=== PATIENT | male | born 1970 | race Caucasian/White ===

== ENCOUNTER 2016-06-12 09:16 | Emergency (ER) | payer MEDICARE ==
[~2016-06-12] VITALS: Ht 190.5 cm; Wt 156.5 kg
[2016-06-12 09:48] VITALS: BP 169/82
[2016-06-12] MEDS ORDERED: OXYC-323 PO (10:24)
--- NOTE | 2016-06-12 10:24 | PHYS DOC ---
Past Medical History Past Medical History: Other Additional Past Medical Histor: crohns, scleraderma,reynauds,hydrenitis Past Surgical History: Other Additional Past Surgical Histo: multiple groin surgeries for hydrenitis, cholectomy,ileostomy Alcohol Use: None Drug Use: None Adult General Chief Complaint Chief Complaint: POST-OP PROBLEM HPI HPI Patient is a 45 year old male who presents with postoperative groin pain. Patient reports he underwent surgery for hidradenitis suppurativa of right groin on 05/06, has had ongoing pain since time of surgery. He reports small amount of blood tinged drainage from the wound. Denies fevers/chills, purulent drainage, hot/red/swollen skin around the wound. His is hospitalized here so he has been ambulating more than usual in order to visit her, & states the friction of his pant leg against the wound has caused significant increase in pain. He reports history of recurrent abscesses requiring numerous surgeries, as well as Crohn's disease. His surgeon was Dr. Marie at [facility]. He has a follow up appointment on 06/16. He is also a patient at the [facility]. States he takes percocet but already ran out of his prescription, can't refill until sometime around 06/15. Review of Systems Review of Systems Constitutional: Denies fever or chills HENT: Denies nasal congestion or sore throat Respiratory: Denies cough or shortness of breath Cardiovascular: Denies chest pain GI: Denies abdominal pain, nausea, vomiting Musculoskeletal: Denies back pain or joint pain, reports groin pain Integument: Reports wound pain Neurologic: Denies headache Allergies Allergies Allergies Coded Allergies Type Severity Reaction Last Updated Verified Penicillins Allergy Severe anaphylaxis 06/12/16 Yes infliximab Allergy Severe anaphylaxis 06/12/16 Yes Physical Exam Physical Exam Constitutional: obese, no acute distress, non-toxic appearance. HENT: Normocephalic, atraumatic, bilateral external ears normal, oropharynx moist, nose normal. Eyes: conjunctiva normal, no discharge. Cardiovascular: no edema. Lungs & Thorax: no respiratory distress. Abdomen: soft, nontender, nondistended. Skin: right groin with approximately 4 cm diameter area of granulation tissue with extensive scarring throughout the groin, no erythema/warmth, no purulent drainage, no active bleeding. tender with light touch. no masses or fluctuance /induration. Extremities: No deformity Neurologic: Alert and oriented X 3, Current Patient Data Vital Signs Vital Signs Date Time Temp Pulse Resp B/P Pulse Ox O2 Delivery O2 Flow Rate FiO2 06/12/16 09:48 97.7 83 20 169/82 94 Room Air 97.7 EKG EKG [] Radiology/Procedures Radiology/Procedures [] Course & Med Decision Making Course & Med Decision Making Pertinent Labs and Imaging studies reviewed. (See chart for details) Patient presents with postoperative pain to the groin. No evidence of wound infection at this time. The area appears quite painful particularly given his body habitus. Discussed with the patient likely had a violation of pain contract if he is to receive additional pain medication. He states that this is okay with his pain doctor because of the acute procedure. I told him this is unusual and he may be in violation of the contract if he receives a prescription today. He is driving to didn't want to receive any medication here in the emergency department. I attempted to contact his surgeon Dr. David Marie at [facility]. He was prescription into the OR. I spoke to a circulating nurse was able to relay a message to Dr. Marie. He had no specific recommendations for pain management, was comfortable with a prescription being given here and patient already has scheduled follow-up appointment in his clinic. I gave prescription for 10 tablets of Percocet and again reminded the patient that this will likely cause violation of pain contract. Any further prescriptions for pain medication should be obtained from pain management or from his surgeon. Keep follow-up appointment on 06/16. Return to the emergency department for high fever, purulent drainage from the wound, hot/red/swollen skin, any otherwise worsening condition. Discharged home in stable condition. [] Dragon Disclaimer Dragon Disclaimer This electronic medical record was generated, in whole or in part, using a voice recognition dictation system. Departure Departure Impression: Primary Impression: Groin pain Additional Impression: Right groin wound Disposition: HOME, SELF-CARE Condition: STABLE Patient Instructions: Pain Relief Preoperatively and Postoperatively Additional Instructions: You were seen in the emergency department today for postoperative pain. There is no sign of infection at this time. Please continue to manage the wound as directed by your surgeon with dressing changes. If pain is severe, take Percocet as needed. No drinking alcohol or driving while taking this medication. We would strongly encourage you to consult with your pain management physician as many patients find they are in violation of their pain contract when receiving additional narcotic medications. Please see Dr. Marie or pain management clinic for additional medication needs. Return to the emergency department for high fever, pus draining from the wound, hot/red/ swollen skin around the wound, any otherwise worsening condition. Scripts Oxycodone/Apap 5-325 (Percocet 5-325 Mg Tablet)1 Each Tablet1-2 Tab PO Q4-6HRS PRN SEVERE PAIN #10 TAB Prov:ANAYELI SCHAFFER MD 06/12/16 Problem Qualifiers ANAYELI SCHAFFER MD Jun 12, 2016 10:24
== END 2016-06-12 10:38 | disposition home or self-care (01) ==
LOC: ER 09:16
DX: S31.103A Unspecified open wound of abdominal wall, right lower quadrant without penetration into peritoneal cavity, initial encounter (principal); X58.XXXA Exposure to other specified factors, initial encounter; G89.18 Other acute postprocedural pain; K50.90 Crohn's disease, unspecified, without complications; Z88.0 Allergy status to penicillin; Z88.8 Allergy status to other drugs, medicaments and biological substances; Y83.8 Other surgical procedures as the cause of abnormal reaction of the patient, or of later complication, without mention of misadventure at the time of the procedure; Y92.89 Other specified places as the place of occurrence of the external cause
CPT/HCPCS: 99283

== ENCOUNTER 2016-10-31 19:01 | Emergency (ER) | payer MEDICARE ==
[~2016-10-31] VITALS: Ht 190.5 cm; Wt 156.5 kg
[~2016-10-31 19:01] MED LIST: OXYC-323 PO
[2016-10-31 19:05] VITALS: BP 226/86
[2016-10-31] MEDS ORDERED: OXYC-328 PO (19:25)
--- NOTE | 2016-10-31 19:25 | PHYS DOC ---
Past Medical History Past Medical History: Other Additional Past Medical Histor: crohns, scleraderma,reynauds,hidradenitis Past Surgical History: Other Additional Past Surgical Histo: multiple groin surgeries for hidradenitis, cholectomy,ileostomy Alcohol Use: None Drug Use: None Adult General Chief Complaint Chief Complaint: WOUND CHECK HPI HPI Patient is a 45 year old male with a history of Crohn's disease who presents today complaining of increased left lower abdominal pain after running out of oxycodone. Patient states he had a colostomy repaired done in September. He states he had the sutures removed yesterday. He states his been following up with [facility] wound clinic. He is in the ED because he ran out of his pain medication and would also like us to look at his wound. Patient is in the ED with the . Patient states he takes oxycodone 10/325 though he also states he gets oxycodone plain with no Tylenol and he wants plain oxycodone for pain. He states his surgeon had given some oxycodone in September but he just ran out. He also states he gets pain medicines from the pain clinic. Review of Systems Review of Systems Constitutional: Denies fever or chills [] Eyes: Denies change in visual acuity, redness, or eye pain [] HENT: Denies nasal congestion or sore throat [] Respiratory: Denies cough or shortness of breath [] Cardiovascular: No additional information not addressed in HPI [] GI: Left lower quadrant abdominal pain : Denies dysuria or hematuria [] Musculoskeletal: Denies back pain or joint pain [] Integument: Denies rash or skin lesions [] Neurologic: Denies headache, focal weakness or sensory changes [] Endocrine: Denies polyuria or polydipsia [] Current Medications Current Medications Current Medications Medications (Trade) Dose Ordered Sig/Maris Start Time Stop Time Status Last Admin Dose Admin Hydromorphone HCl (Dilaudid) 2 mg 1X ONCE 10/31/16 19:30 10/31/16 19:31 10/31/16 19:23 2 MG Allergies Allergies Allergies Coded Allergies Type Severity Reaction Last Updated Verified Penicillins Allergy Severe anaphylaxis 06/12/16 Yes infliximab Allergy Severe anaphylaxis 06/12/16 Yes Physical Exam Physical Exam Constitutional: Well developed, well nourished, no acute distress, non-toxic appearance. [] HENT: Normocephalic, atraumatic, bilateral external ears normal, oropharynx moist, no oral exudates, nose normal. [] Eyes: PERRLA, EOMI, conjunctiva normal, no discharge. [] Neck: Normal range of motion, no tenderness, supple, no stridor. [] Cardiovascular:Heart rate regular rhythm, no murmur [] Lungs & Thorax: Bilateral breath sounds clear to auscultation [] Abdomen: Bowel sounds normal, soft, no tenderness, no masses, no pulsatile masses. [] LLQ with an ostomy. The surrounding area around the ostomy site appears to be reddened. Patient states this is chronic hence the reason he follows up with the wound clinic. Skin: Warm, dry, no erythema, no rash. [] Back: No tenderness, no CVA tenderness. [] Extremities: No tenderness, no cyanosis, no clubbing, ROM intact, no edema. [] Neurologic: Alert and oriented X 3, normal motor function, normal sensory function, no focal deficits noted. [] Psychologic: Affect normal, judgement normal, mood normal. [] Current Patient Data Vital Signs Vital Signs Date Time Temp Pulse Resp B/P (MAP) Pulse Ox O2 Delivery O2 Flow Rate FiO2 10/31/16 19:05 98.0 58 16 226/86 (132) 95 Room Air 98.0 EKG EKG [] Radiology/Procedures Radiology/Procedures [] Course & Med Decision Making Course & Med Decision Making Pertinent Labs and Imaging studies reviewed. (See chart for details) Patient is in the ED with complaints of left lower quadrant pain after having sutures removed at his colostomy site, he also ran out of his pain medicine. LLQ with an ostomy. The surrounding area around the ostomy site appears to be reddened. Patient states this is chronic hence the reason he follows up with the wound clinic. I offered patient pain relief in the ED. I did give him a prescription for oxycodone 10/325mg and informed him if a pharmacy calls me with any concerns about this prescription I will cancel. He follows up with [facility] wound clinic, pain clinic as well as his surgeon. Informed him penis to see this providers on Wednesday. Ellis Disclaimer Dragon Disclaimer This electronic medical record was generated, in whole or in part, using a voice recognition dictation system. Departure Departure Impression: Primary Impression: Wound check, abscess Additional Impression: Inadequate pain control Disposition: 01 HOME, SELF-CARE Condition: STABLE Referrals: UNKNOWN PCP NAME (PCP) Follow-up with the pain clinic, wound clinic, and the surgeon the due to procedure on Wednesday. Patient Instructions: Wound Check Additional Instructions: We checked a wound on your left lower abdomen. You need to continue following up with the [facility] wound clinic. You also need to follow -up with the pain clinic as well as the surgeon that did the surgery on Wednesday. Scripts Oxycodone/Apap 10-325 (PERCOCET 10-325 MG TABLET) 1 Each Tablet 1 TAB PO Q4-6HRS, #14 TAB Prov: EMIGDIO GERMAIN APRN 10/31/16 Problem Qualifiers EMIGDIO GERMAIN APRN Oct 31, 2016 19:25
[2016-10-31] MEDS ORDERED: HYDROmorphone 2 MG/ML VIAL IM ONE (19:30)
== END 2016-10-31 19:45 | disposition home or self-care (01) ==
LOC: ER 19:01
DX: Z48.01 Encounter for change or removal of surgical wound dressing (principal); R10.32 Left lower quadrant pain; G89.29 Other chronic pain; R11.0 Nausea; K50.90 Crohn's disease, unspecified, without complications; Z88.0 Allergy status to penicillin; Z88.8 Allergy status to other drugs, medicaments and biological substances; Z93.3 Colostomy status; Z90.49 Acquired absence of other specified parts of digestive tract; Z93.2 Ileostomy status
CPT/HCPCS: 96372; 99283; J1170

== ENCOUNTER 2016-12-19 16:39 | Emergency (ER) | payer MEDICARE ==
[~2016-12-19] VITALS: Ht 190.5 cm; Wt 156.5 kg
[~2016-12-19 16:39] MED LIST changes: +OXYC-328 PO
--- NOTE | 2016-12-19 16:56 | PHYS DOC ---
Past Medical History Past Medical History: Other Additional Past Medical Histor: crohns, scleraderma,reynauds,hidradenitis Past Surgical History: Other Additional Past Surgical Histo: multiple groin surgeries for hidradenitis, cholectomy,ileostomy Alcohol Use: None Drug Use: None Adult General Chief Complaint Chief Complaint: ABDOMINAL PAIN [facility] HPI Patient is a 45 year old male who presents with left lower quadrant abdominal pain. He started it started about an hour prior to arrival. States it's just left of his ostomy site that was revised back in September. He denies any nausea or vomiting. He states the pain started as a sharp stabbing pain and a burning sensation he states the burning sensation has decreased but he still has a sharp stabbing pain in that area. He states his ostomy site is producing as normal. Review of Systems Review of Systems Constitutional: Denies fever or chills [] Eyes: Denies change in visual acuity, redness, or eye pain [] HENT: Denies nasal congestion or sore throat [] Respiratory: Denies cough or shortness of breath [] Cardiovascular: No additional information not addressed in HPI [] GI: Denies nausea, vomiting, bloody stools or diarrhea positive for abdominal pain, [] : Denies dysuria or hematuria [] Musculoskeletal: Denies back pain or joint pain [] Integument: Denies rash or skin lesions [] Neurologic: Denies headache, focal weakness or sensory changes [] Endocrine: Denies polyuria or polydipsia [] Current Medications Current Medications Current Medications Medications (Trade) Dose Ordered Sig/Maris Start Time Stop Time Status Last Admin Dose Admin Info (Do NOT chart on this entry -- for MONITORING) 1 each PRN DAILY PRN 12/19/16 17:45 12/21/16 17:44 Iohexol (Omnipaque 240 Mg/ml) 50 ml 1X ONCE 12/19/16 17:45 12/19/16 17:46 DC Iohexol (Omnipaque 300 Mg/ml) 75 ml 1X ONCE 12/19/16 17:45 12/19/16 17:46 DC 12/19/16 18:11 75 ML Sodium Chloride 1,000 ml @ 1,000 mls/hr Q1H 12/19/16 17:31 12/19/16 18:30 DC 12/19/16 17:31 1,000 MLS/HR Allergies Allergies Allergies Coded Allergies Type Severity Reaction Last Updated Verified Penicillins Allergy Severe anaphylaxis 06/12/16 Yes infliximab Allergy Severe anaphylaxis 06/12/16 Yes Physical Exam Physical Exam Constitutional: Well developed, well nourished, no acute distress, non-toxic appearance. [] HENT: Normocephalic, atraumatic, bilateral external ears normal, oropharynx moist, no oral exudates, nose normal. [] Eyes: PERRLA, EOMI, conjunctiva normal, no discharge. [] Neck: Normal range of motion, no tenderness, supple, no stridor. [] Cardiovascular:Heart rate regular rhythm, no murmur [] Lungs & Thorax: Bilateral breath sounds clear to auscultation [] Abdomen: Bowel sounds normal, soft, mild tenderness in the lateral aspect of the ileostomy, no masses, no pulsatile masses. Ileostomy in the left lower quadrant that's producing Skin: Warm, dry, no erythema, no rash. [] Back: No tenderness, no CVA tenderness. [] Extremities: No tenderness, no cyanosis, no clubbing, ROM intact, no edema. [] Neurologic: Alert and oriented X 3, normal motor function, normal sensory function, no focal deficits noted. [] Psychologic: Affect normal, judgement normal, mood normal. [] Current Patient Data Vital Signs Vital Signs Date Time Temp Pulse Resp B/P (MAP) Pulse Ox O2 Delivery O2 Flow Rate FiO2 12/19/16 18:37 70 20 141/77 (98) 98 Room Air 12/19/16 17:10 98.4 98.4 Lab Values Laboratory Tests Test 12/19/16 16:50 12/19/16 17:15 Urine Collection Type Unknown Urine Color Yellow Urine Clarity Clear Urine pH 6.0 Urine Specific [place] >=1.030 Urine Protein Negative mg/dL (NEG-TRACE) Urine Glucose (UA) Negative mg/dL (NEG) Urine Ketones (Stick) Negative mg/dL (NEG) Urine Blood Negative (NEG) Urine Nitrite Negative (NEG) Urine Bilirubin Negative (NEG) Urine Urobilinogen Dipstick 0.2 mg/dL (0.2 mg/dL) Urine Leukocyte Esterase Negative (NEG) Urine RBC 0 /HPF (0-2) Urine WBC 1-4 /HPF (0-4) Urine Squamous Epithelial Cells Few /LPF Urine Bacteria Few /HPF (0-FEW) Urine Mucus Mod /LPF Urine Opiates Screen Neg (NEG) Urine Methadone Screen Neg (NEG) Urine Barbiturates Neg (NEG) Urine Phencyclidine Screen Neg (NEG) Urine Amphetamine/Methamphetamine Neg (NEG) Urine Benzodiazepines Screen Neg (NEG) Urine Cocaine Screen Neg (NEG) Urine Cannabinoids Screen Neg (NEG) Urine Ethyl Alcohol Neg (NEG) White Blood Count 9.6 x10^3/uL (4.0-11.0) Red Blood Count 5.56 x10^6/uL (4.30-5.70) Hemoglobin 12.4 g/dL (13.0-17.5) L Hematocrit 39.8 % (39.0-53.0) Mean Corpuscular Volume 72 fL (79-100) L Mean Corpuscular Hemoglobin 22 pg (25-35) L Mean Corpuscular Hemoglobin Concent 31 g/dL (31-37) Red Cell Distribution Width 17.5 % (11.5-14.5) H Platelet Count 317 x10^3/uL (140-400) Neutrophils (%) (Auto) 72 % (31-73) Lymphocytes (%) (Auto) 17 % (24-48) L Monocytes (%) (Auto) 8 % (0-9) Eosinophils (%) (Auto) 2 % (0-3) Basophils (%) (Auto) 1 % (0-3) Neutrophils # (Auto) 6.9 x10^3uL (1.8-7.7) Lymphocytes # (Auto) 1.6 x10^3/uL (1.0-4.8) Monocytes # (Auto) 0.7 x10^3/uL (0.0-1.1) Eosinophils # (Auto) 0.2 x10^3/uL (0.0-0.7) Basophils # (Auto) 0.1 x10^3/uL (0.0-0.2) Platelet Estimate Pending Prothrombin Time 12.9 SEC (11.7-14.0) Prothrombin Time INR 1.0 (0.8-1.1) PTT 31 SEC (24-38) Sodium Level 139 mmol/L (136-145) Potassium Level 4.1 mmol/L (3.5-5.1) Chloride Level 103 mmol/L (98-107) Carbon Dioxide Level 27 mmol/L (21-32) Anion Gap 9 (6-14) Blood Urea Nitrogen 16 mg/dL (8-26) Creatinine 1.3 mg/dL (0.7-1.3) Estimated GFR (Cockcroft-Gault) 59.2 Glucose Level 137 mg/dL (70-99) H Calcium Level 8.6 mg/dL (8.5-10.1) Total Bilirubin 0.6 mg/dL (0.2-1.0) Direct Bilirubin 0.2 mg/dL (0.0-0.2) Aspartate Amino Transferase (AST) 44 U/L (15-37) H Alanine Aminotransferase (ALT) 48 U/L (16-63) Alkaline Phosphatase 166 U/L (46-116) H Creatine Kinase 54 U/L (39-308) Creatine Kinase MB (Mass) 1.5 ng/mL (0.0-3.6) Creatine Kinase MB Relative Index % (0-4) Total Protein 6.5 g/dL (6.4-8.2) Albumin 3.5 g/dL (3.4-5.0) Lipase 130 U/L (73-393) Laboratory Tests 12/19/16 17:15 Laboratory Tests 12/19/16 17:15 EKG EKG [] Radiology/Procedures Radiology/Procedures [facility] [address] [place] [address] IMAGING REPORT Signed PATIENT: CONCHA MATHEW ACCOUNT: [id number] : 1970 LOCATION: ER AGE: 45 SEX: M EXAM STATUS: REG ER ORD. PHYSICIAN: FUAD MAY MD REASON: llq pain PROCEDURE: CT ABD PELV W/ IV CONTRST ONLY CT of the abdomen and pelvis with contrast, 12/19/2016: HISTORY: Left lower quadrant pain Multidetector CT imaging was performed following IV bolus injection of iodinated contrast material. No oral contrast material was administered for this study. No previous exams are available at this time for comparison purposes. No hepatic abnormality is detected. There are dense gallstones in the gallbladder. The gallbladder is somewhat contracted. There is no pericholecystic edema. No pancreatic abnormality is seen. The spleen is mildly enlarged measuring 15.9 cm in craniocaudad extent. No renal or adrenal abnormality is detected. The abdominal aorta is unremarkable. No abdominal adenopathy is evident. There are mildly prominent external iliac and left inguinal lymph nodes. There is a large fluid collection in the lower pelvis. This appears to represent an enlarged fluid-filled rectal stump. The urinary bladder is displaced anteriorly. There is an ostomy in the left lower quadrant which is reportedly an ileostomy. There are multiple bowel loops in the subcutaneous soft tissues at that level compatible with a parastomal hernia. There is an additional small ventral hernia containing a knuckle of small bowel just to the right of midline in the lower abdomen. There is no evidence of associated bowel obstruction. No free air or free fluid is evident in the abdomen or pelvis. IMPRESSION: 1. 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 2. Additional small ventral hernia containing a knuckle of small bowel. 3. No evidence of bowel obstruction. 4. Fluid distention of a rectal stump. 5. Cholelithiasis. 6. Splenomegaly Electronically signed by: Alonzo Chavez MD (12/19/2016 6:36 PM) [facility] DICTATED and SIGNED BY: ALONZO CHAVEZ MD DATE: 12/19/161826 CC: FUAD MAY MD; NON,STAFF ~ Impressions: Abdominal pain Course & Med Decision Making Course & Med Decision Making Pertinent Labs and Imaging studies reviewed. (See chart for details) Patient refused oral contrast on his CT abdomen and pelvis. CT abdomen and pelvis is back that shows parastomal hernia that is reducible and a small "knuckle" of bowel in the ventral hernia. His exam is nonacute. I've offered him admission to the hospital but he refuses and wants to go home. I've instructed him to follow-up with his surgeons at [facility]. Patient hasn't required any pain meds and states his pain has improved. He is agreeable to return precautions and being discharged in stable condition at this time. I stressed to him the concern I have if his pain gets worse or does not improve to return back to emergency department. Dragon Disclaimer Dragon Disclaimer This electronic medical record was generated, in whole or in part, using a voice recognition dictation system. Departure Departure Impression: Primary Impression: Abdominal pain Disposition: HOME, SELF-CARE Condition: STABLE Referrals: UNKNOWN PCP NAME (PCP) Patient Instructions: Abdominal Pain Additional Instructions: Your CT scan of her abdomen pelvis shows a hernia next to your ileostomy. I've offered you admission to the hospital, but you would rather go home because she need take care of your and she needs a car. Your abdominal pain have improved and you haven't needed pain meds here in the ER. Your labs do not show any acute abnormalities. You should follow-up with your surgeons at [facility]. Please call them Wednesday and get a follow-up appointment. If you have any worsening abdominal pain he developed fevers or you have blood in your ostomy, he had decreased ostomy output or you have any other concerns please return back to emergency department. Problem Qualifiers Primary Impression: Abdominal pain Abdominal location: left lower quadrant Qualified Codes: R10.32 - Left lower quadrant pain FUAD MAY MD Dec 19, 2016 16:56
[2016-12-19] MEDS ORDERED: IV NORMAL SALINE 1000ML BAG 1,000 ML IV SCH (17:31)
[2016-12-19] MEDS ORDERED: CONTRAST GIVEN MC PRN (17:45)
[2016-12-19] MEDS ORDERED: IOHEXOL 300 MG/ML 75 ML VIAL IV ONE (17:45)
[2016-12-19] MEDS ORDERED: IOHEXOL 240 MG/ML 50ML VIAL. PO ONE (17:45)
[2016-12-19 17:47] LABS: BASO # 0.1 x10^3/uL (0.0-0.2); BASO % 1 % (0-3); EOS % 2 % (0-3); HEMATOCRIT 39.8 % (39.0-53.0); HEMOGLOBIN 12.4 g/dL (13.0-17.5); LYMPH # 1.6 x10^3/uL (1.0-4.8); LYMPH % 17 % (24-48); MEAN CORPUSCULAR HEMOGLOBIN 22 pg (25-35); MEAN CORPUSCULAR HGB CONC 31 g/dL (31-37); MEAN CORPUSCULAR VOLUME 72 fL (79-100); MONO % 8 % (0-9); NEUT % 72 % (31-73); PLATELET COUNT 317 x10^3/uL (140-400); RED BLOOD COUNT 5.56 x10^6/uL (4.30-5.70); RED CELL DISTRIBUTION WIDTH 17.5 % (11.5-14.5); WHITE BLOOD COUNT 9.6 x10^3/uL (4.0-11.0)
[2016-12-19 17:54] LABS: BILIRUBIN,URINE NEGATIVE (NEG); GLUCOSE,URINE NEGATIVE (NEG); NITRITE,URINE NEGATIVE (NEG); PROTEIN,URINE NEGATIVE (NEG-TRACE); UROBILINOGEN,URINE 0.2 mg/dL (0.2 mg/dL)
[2016-12-19 17:56] LABS: BARBITURATES NEG (NEG); BENZODIAZEPINES NEG (NEG); CANNABINOIDS NEG (NEG); COCAINE NEG (NEG); METHADONE NEG (NEG); OPIATES NEG (NEG); PHENCYCLIDINE NEG (NEG)
[2016-12-19 17:56] LABS: PROTHROMBIN TIME PATIENT 12.9 SEC (11.7-14.0)
[2016-12-19 18:01] LABS: CALCIUM 8.6 mg/dL (8.5-10.1); CREATININE 1.3 mg/dL (0.7-1.3); GFR 59.2; POTASSIUM 4.1 mmol/L (3.5-5.1)
[2016-12-19 18:07] LABS: ALBUMIN 3.5 g/dL (3.4-5.0); DIRECT BILIRUBIN 0.2 mg/dL (0.0-0.2); TOTAL BILIRUBIN 0.6 mg/dL (0.2-1.0); TOTAL PROTEIN 6.5 g/dL (6.4-8.2)
[2016-12-19 18:11] LABS: BACTERIA,URINE FEW /HPF (0-FEW); RBC,URINE 0 /HPF (0-2); SQUAMOUS EPITHELIAL CELL,UR FEW /LPF
[2016-12-19 18:15] LABS: CKMB MASS 1.5 ng/mL (0.0-3.6); CREATINE KINASE 54 U/L (39-308)
[2016-12-19 18:37] VITALS: BP 141/77
--- NOTE | 2016-12-19 18:40 | RAD ---
CT of the abdomen and pelvis with contrast, 12/19/2016: HISTORY: Left lower quadrant pain Multidetector CT imaging was performed following IV bolus injection of iodinated contrast material. No oral contrast material was administered for this study. No previous exams are available at this time for comparison purposes. No hepatic abnormality is detected. There are dense gallstones in the gallbladder. The gallbladder is somewhat contracted. There is no pericholecystic edema. No pancreatic abnormality is seen. The spleen is mildly enlarged measuring 15.9 cm in craniocaudad extent. No renal or adrenal abnormality is detected. The abdominal aorta is unremarkable. No abdominal adenopathy is evident. There are mildly prominent external iliac and left inguinal lymph nodes. There is a large fluid collection in the lower pelvis. This appears to represent an enlarged fluid-filled rectal stump. The urinary bladder is displaced anteriorly. There is an ostomy in the left lower quadrant which is reportedly an ileostomy. There are multiple bowel loops in the subcutaneous soft tissues at that level compatible with a parastomal hernia. There is an additional small ventral hernia containing a knuckle of small bowel just to the right of midline in the lower abdomen. There is no evidence of associated bowel obstruction. No free air or free fluid is evident in the abdomen or pelvis. IMPRESSION: 1. 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 2. Additional small ventral hernia containing a knuckle of small bowel. 3. No evidence of bowel obstruction. 4. Fluid distention of a rectal stump. 5. Cholelithiasis. 6. Splenomegaly Electronically signed by: Alonzo Olmos MD (12/19/2016 6:36 PM) [facility]
[2016-12-19 20:37] LABS: ANISOCYTOSIS SLIGHT; HYPOCHROMIA MOD; MICROCYTOSIS MOD; PLT ESTIMATE ADEQUATE (ADEQUATE)
== END 2016-12-19 20:06 | disposition home or self-care (01) ==
LOC: ER 16:39
DX: R10.32 Left lower quadrant pain (principal); K50.90 Crohn's disease, unspecified, without complications; Z88.0 Allergy status to penicillin; Z88.8 Allergy status to other drugs, medicaments and biological substances; Z79.899 Other long term (current) drug therapy
CPT/HCPCS: 36415; 74177; 80048; 80076; 80307; 81001; 82553; 83690; 85025; 85610; 85730; 96360; 99285; J7030; Q9967; G0479

== ENCOUNTER 2017-03-18 21:21 | Emergency (ER) | payer MEDICARE ==
[2017-03-18 22:40] LABS: ANION GAP 10 (6-14); BLOOD UREA NITROGEN 13 mg/dL (8-26); CALCIUM 8.4 mg/dL (8.5-10.1); CARBON DIOXIDE 26 mmol/L (21-32); CHLORIDE 102 mmol/L (98-107); CREATININE 1.1 mg/dL (0.7-1.3); GFR 71.4; GLUCOSE 113 mg/dL (70-99); POTASSIUM 4.1 mmol/L (3.5-5.1); SODIUM 138 mmol/L (136-145)
[2017-03-18 22:46] LABS: ADD MAN DIFF? NO
[2017-03-18 22:49] LABS: TROPONINI < 0.017 ng/mL (0.000-0.055)
[2017-03-18 22:51] LABS: BASO # 0.1 x10^3/uL (0.0-0.2); BASO % 1 % (0-3); EOS # 0.2 x10^3/uL (0.0-0.7); EOS % 2 % (0-3); HEMATOCRIT 42.8 % (39.0-53.0); HEMOGLOBIN 13.2 g/dL (13.0-17.5); LYMPH # 1.8 x10^3/uL (1.0-4.8); LYMPH % 20 % (24-48); MEAN CORPUSCULAR HEMOGLOBIN 23 pg (25-35); MEAN CORPUSCULAR HGB CONC 31 g/dL (31-37); MEAN CORPUSCULAR VOLUME 73 fL (79-100); MONO # 0.8 x10^3/uL (0.0-1.1); MONO % 9 % (0-9); NEUT % 67 % (31-73); PLATELET COUNT 299 x10^3/uL (140-400); RED BLOOD COUNT 5.89 x10^6/uL (4.30-5.70); RED CELL DISTRIBUTION WIDTH 16.9 % (11.5-14.5); WHITE BLOOD COUNT 8.9 x10^3/uL (4.0-11.0)
[2017-03-18 22:52] LABS: D-DIMER < 0.27 ug/mlFEU (0.00-0.50)
[2017-03-18 23:09] LABS: ANISOCYTOSIS SLIGHT; HYPOCHROMIA MOD; MICROCYTOSIS SLIGHT; PLT ESTIMATE ADEQUATE (ADEQUATE); POIKILOCYTOSIS SLIGHT
== END 2017-03-18 23:23 | disposition home or self-care (01) ==
LOC: ER 23:23
DX: I51.7 Cardiomegaly (principal); R06.00 Dyspnea, unspecified; Z88.0 Allergy status to penicillin; Z88.8 Allergy status to other drugs, medicaments and biological substances
CPT/HCPCS: 36415; 71046; 80048; 84484; 85025; 85379; 93005; 99285-25